=== PATIENT | female | born 1990 | race Caucasian/White ===

== ENCOUNTER 2016-09-16 10:18 | Outpatient (CLI) | payer OTHER ==
[2016-09-16] MEDS ORDERED: ACETAMINOPHEN 325 MG TAB PO PRN (11:00)
--- NOTE | 2016-09-16 12:11 | DIAGNOSTIC IMAGING REPORT ---
LIMITED (US) CLINICAL HISTORY: CERVICAL LENGTH AND PLACENTA COMPARISON STUDY: None. FINDINGS: There is a single intrauterine gestation demonstrating a heart rate of 156 bpm. The fetus is in a cephalic presentation. There is no abnormally low amniotic fluid index of 6.2 cm. There is an anterior placenta which appears unremarkable. No evidence for subchorionic hematoma. Evaluation for a placenta previa is essentially nondiagnostic due to the position of the head. However, the current position of the placenta is less likely to result in placenta previa. The cervix is partially obscured by the head but appears to measure approximately 2.5 cm in length. A anatomical survey was not performed. IMPRESSION: 1. Oligohydramnios. 2. Single viable intrauterine gestation in a cephalic presentation with a heart rate of 156 bpm. 3. The cervix is 2.5 cm in length and appears to be closed. 4. Normal anterior placenta. No evidence for subchorionic hematoma. Electronically signed by: Rowdy Garcia M.D. 09/16/2016 12:10 PM Dictated Date/Time: 09/16/2016 12:04 PM
[2016-09-16 12:23] LABS: URINE APPEARANCE CLEAR (CLEAR); URINE BILIRUBIN NEG (NEG); URINE COLOR YELLOW; URINE NITRITE NEG (NEG); URINE PH 6.5 (4.5-7.5); URINE SPECIFIC GRAVITY 1.011 (1.000-1.030); UROBILINOGEN NEG (NEG); ZZUR CULT IF INDIC CLEAN CATCH NO
[2016-09-16 12:28] LABS: BASO % 0.1 %; BASO ABS # 0.01 K/uL (0-0.2); COMPLETE YES; EOS % 1.1 %; HEMATOCRIT 30.2 % (37-47); IG% 0.4 %; LYMPH % 20.4 %; LYMPH ABS # 1.49 K/uL (1.2-3.4); MEAN CELL VOLUME 91.5 fL (80-100); MEAN CORPUSCULAR HEMOGLOBIN 31.8 pg (25-34); MEAN CORPUSCULAR HGB CONC 34.8 g/dl (32-36); MEAN PLATELET VOLUME 9.1 fL (7.4-10.4); MONO % 9.5 %; NEUT % 68.5 %; PLATELET COUNT 226 K/uL (130-400)
[2016-09-16 12:46] LABS: MANUAL MICROSCOPIC REQUIRED? NO; REVIEW REQ? YES
[2016-09-16 12:57] LABS: INR 0.9 (0.9-1.1); PARTIAL THROMBOPLASTIN RATIO 1.1; PROTHROMBIN TIME (PATIENT) 9.7 SECONDS (9.0-12.0)
[2016-09-16] MEDS ORDERED: FRRS300 MT (14:40)
[2016-09-16] MEDS ORDERED: DOCU-94 PO (14:40)
--- NOTE | 2016-09-16 14:41 | Discharge Instructions ---
Discharge Instructions Admission Reason for Admission: 20 Wks ,Bleeding Discharge Discharge Diagnosis / Problem: Vaginal bleeding Discharge Goals Goal(s): Continuing OB care Activity Recommendations Activity Limitations: as noted below Lifting Limitations: no more than 10 pounds Exercise/Sports Limitations: until after follow-up appointment May Resume Sexual Activity: after follow-up appointment Shower/Bathe: no limitations Driving or Machine Use: no limitations ACTIVITY RECOMMENDATIONS: See Labor Sheet. SPECIAL CARE INSTRUCTIONS: Call Doctor if: * Regular contractions every 5 minutes or greater than 5 contractions in one hour. * Bleeding * Water breaks or is leaking * Decreased movement * Fever >100.4 degrees F * Pain not relieved by routine measures or pain medication ordered. FOLLOW UP VISIT: Return to Labor and Delivery on for /call for appointment time . Follow-up Visit with: Natalya steward [phone] When: . Current Hospital Diet Patient's current hospital diet: Discharge Diet Recommended Diet: Regular Diet Pending Studies Studies pending at discharge: no Medical Emergencies . Who to Call and When: Medical Emergencies: If at any time you feel your situation is an emergency, please call 911 immediately. . Non-Emergent Contact Non-Emergency issues call your: Primary Care Provider, Surgeon Call Non-Emergent contact if: temperature is above 100.5, your pain is not controlled . . "Provider Documentation" section prepared by Kaveh Burnett. VTE Core Measure Inpt VTE Proph given/why not?: Treatment not indicated
[2016-09-23] MEDS ORDERED: MTR600X PO (08:10)
== END 2016-09-16 15:00 | disposition home or self-care (01) ==
LOC: C.OPB 10:18 → C.LD 10:19 → C.OPB 15:00
PROVIDERS: ATTEND Obstetrics & Gynecology
DX: O46.92 Antepartum hemorrhage, unspecified, second trimester (principal); R10.9 Unspecified abdominal pain; Z3A.21 21 weeks gestation of pregnancy

== ENCOUNTER 2016-09-22 23:38 | Inpatient (IN) | payer OTHER ==
[~2016-09-22] VITALS: Ht 165.1 cm; Wt 66.1 kg
[~2016-09-22 23:38] MED LIST: DOCU-94 PO; FRRS300 MT
[2016-09-23] MEDS ORDERED: LACTATED RINGER'S 1000ML 1,000 ML IV SCH ×2 (00:08→00:48)
[2016-09-23] MEDS ORDERED: LACTATED RINGER'S 1000ML 1,000 ML IV PRN (00:08)
[2016-09-23] MEDS ORDERED: BUTORPHANOL TARTRATE 1 MG/ML VIAL ONE (00:12)
[2016-09-23] MEDS ORDERED: NURSING VERBAL MED ORDER ONE (00:15)
[2016-09-23] MEDS ORDERED: OXYTOCIN 30 UNITS/500ML NSS IV ONE (00:32)
[2016-09-23 00:34] LABS: HEMATOCRIT 29.8 % (37-47); MEAN CELL VOLUME 90.3 fL (80-100); MEAN CORPUSCULAR HEMOGLOBIN 31.8 pg (25-34); MEAN CORPUSCULAR HGB CONC 35.2 g/dl (32-36); MEAN PLATELET VOLUME 8.8 fL (7.4-10.4); PLATELET COUNT 238 K/uL (130-400); WHITE BLOOD COUNT 9.93 K/uL (4.8-10.8)
[2016-09-23] MEDS ORDERED: ACETAMINOPHEN/CODEINE 300/30MG TAB PO PRN ×2 (01:00)
[2016-09-23] MEDS ORDERED: SUPERCREAM 0.870 % 15GM JAR EXT PRN (01:00)
[2016-09-23] MEDS ORDERED: IBUPROFEN 600 MG TAB PO PRN (01:00)
[2016-09-23] MEDS ORDERED: HYDROCORTISONE ACETATE 25 MG SUPP PR PRN (01:00)
[2016-09-23] MEDS ORDERED: OXYCODONE/ACETAMINOPHEN 5-325 TAB PO PRN (01:00)
[2016-09-23] MEDS ORDERED: BENZOCAINE 20% AER SPR 82.5 GM CAN EXT PRN (01:00)
[2016-09-23] MEDS ORDERED: OXYTOCIN 30 UNITS/500ML NSS IV PRN (01:00)
[2016-09-23] MEDS ORDERED: ACETAMINOPHEN 325 MG TAB PO PRN (01:00)
--- NOTE | 2016-09-23 01:35 | Progress Note ---
Progress Note OB Delivery Note 25 F [id number] presents at 22.2 weeks with premature rupture of membranes and labor ongoing since 9PM earlier this evening. Patient was actively in labor with bleeding and was noted to be fully dilated when I arrived to see her. She pushed to deliver a previable female with Apgars 1/1 over intact perineum. Shoulder cord noted. Cord blood obtained and placenta was delivered spontaneously and intact. Baby with fused eyes and no obvious malformations noted. No tears noted. EBL 200 ml. Mom stable and baby to moms chest for expectant management with no planned pediatric intervention as discussed with parents prior to delivery. Patient was seen by [facility] in [place] 09/20/16 and noted to have a short cervix with no fluid. Plan at that time was for expectant management until 23 weeks if undelivered and then maternal steroids. Patient has note bleeding for about a month now. No prior history of any problems in past pregnancies. Will continue expectant and comfort measures for baby.
[2016-09-23 07:22] VITALS: Ht 165.1 cm; Wt 66.1 kg
[2016-09-23] MEDS ORDERED: BUSP5TAB59 PO (07:30)
[2016-09-23] MEDS ORDERED: FERROUS SULFATE 325 MG TAB PO SCH (08:00)
[2016-09-23] MEDS ORDERED: DOCUSATE SODIUM 100 MG CAP PO SCH (08:00)
[2016-09-23] MEDS ORDERED: PRENATAL VITAMIN TAB PO SCH (08:00)
[2016-09-23] MEDS ORDERED: MTR600X PO (08:10)
--- NOTE | 2016-09-23 08:12 | Discharge Instructions ---
Discharge Instructions Admission Reason for Admission: Active Labor Discharge Discharge Diagnosis / Problem: PREMATURE RUPTURED MEMBRANES Discharge Goals Goal(s): Decrease discomfort, Improve nutritional status Activity Recommendations Activity Limitations: as noted below Lifting Limitations: no more than 10 pounds Exercise/Sports Limitations: gradually increase as tolerated May Resume Sexual Activity: after follow-up appointment Shower/Bathe: no limitations Driving or Machine Use: resume 3 days after discharge . Instructions / Follow-Up Instructions / Follow-Up . ACTIVITY RECOMMENDATIONS: * Vaginal rest (no tampons, douching, intercourse) until after doctor 's visit. * control as discussed with doctor. * Wear a bra for 24 hours/day for comfort. SPECIAL CARE INSTRUCTIONS: Medications: * vitamins, one tablet daily. Continue taking until prescription is complete. Call you doctor if: * Temperature greater than or equal to 100.4 degrees F or 38.0 degrees C. * Bleeding becomes heavier than the heaviest part of your period - saturating a sanitary pad within an hour. * Passing large clots. * Unrelieved pain. * Bleeding has a foul smelling odor. * Signs and symptoms of phlebitis: leg pain, warm, red or swollen area on leg. incision has increased pain, redness, swelling, presence of any drainage, or if the incision starts to open up. FOLLOW UP VISIT: If appointment is not already scheduled: Please call doctor's office to schedule a follow-up appointment. Current Hospital Diet Patient's current hospital diet: Regular Diet Discahrge Diet Recommended Diet: Regular Diet Fluid Restriction: None Pending Studies Studies pending at discharge: no Medical Emergencies . Who to Call and When: Medical Emergencies: If at any time you feel your situation is an emergency, please call 911 immediately. . Non-Emergent Contact Non-Emergency issues call your: Primary Care Provider . . "Provider Documentation" section prepared by Jarad Bansal. VTE Core Measure Inpt VTE Proph given/why not?: Treatment not indicated
--- NOTE | 2016-09-23 08:15 | OB/GYN Progress Note ---
[employer] Progress Note Date of Service Sep 23, 2016. Subjective conversation w/ patient, conversation w/ family, physical exam Ambulation: ambulating normally Passing Gas: Yes Diet Tolerance: Regular Diet Lochia: Small Objective Physical Exam General Appearance: NO APPARENT DISTRESS Abdomen: non tender, soft Fundus: Firm Extremities: normal inspection, no pedal edema, no calf tenderness Laboratory Results Last 24 Hours Test 09/23/16 00:25 White Blood Count 9.93 K/uL Red Blood Count 3.30 M/uL Hemoglobin 10.5 g/dL Hematocrit 29.8 % Mean Corpuscular Volume 90.3 fL Mean Corpuscular Hemoglobin 31.8 pg Mean Corpuscular Hemoglobin Concent 35.2 g/dl RDW Standard Deviation 40.9 fL RDW Coefficient of Variation 12.5 % Platelet Count 238 K/uL Mean Platelet Volume 8.8 fL Assessment and Plan Post- Continue Routine Care: DISCHARGED HOME FOLLOW UP IN 2 WEEKS IN OFFICE
[2016-09-23] MEDS ORDERED: BISACODYL 5 MG TABEC PO SCH (20:00)
[2016-09-24] MEDS ORDERED: BISACODYL 10 MG SUPP PR PRN (07:00)
[2016-09-24] MEDS ORDERED: MEASLES, MUMPS & RUBELLA VIRUS VIAL SQ. ONE (09:00)
[2016-09-24] MEDS ORDERED: DIPHTHERIA/TETANUS/PERTUSSIS 0.5 ML SYR/VIAL IM. ONE (09:00)
== END 2016-09-23 09:00 | disposition home or self-care (01) | DRG 775 ==
LOC: C.OPB 23:38 → C.LD 23:38 → C.OPB 23:50 → C.LD 23:50
PROVIDERS: ADMIT Obstetrics & Gynecology; ATTEND Obstetrics & Gynecology
PROC: 10E0XZZ Delivery of Products of Conception, External Approach (ICD-10-PCS; principal; 2016-09-23)
DX: O60.12X0 Preterm labor second trimester with preterm delivery second trimester, not applicable or unspecified (principal); O42.912 Preterm premature rupture of membranes, unspecified as to length of time between rupture and onset of labor, second trimester; Z3A.22 22 weeks gestation of pregnancy; Z37.0 Single live birth